=== PATIENT | female | born 2000 | race Two or more races ===

== ENCOUNTER 2020-11-10 12:08 | Emergency (ER) | payer OTHER ==
[~2020-11-10] VITALS: Ht 160 cm; Wt 54.0 kg
[2020-11-10 13:37] LABS: BASOPHILS % 0.5 % (0.0-2.0); EOSINOPHILS % 0.5 % (0.0-5.0); HEMATOCRIT. 41.5 % (36.0-48.0); HEMOGLOBIN. 13.7 g/dL (12.0-16.0); LYMPHOCYTES % 24.8 % (20.0-50.0); MEAN CORPUSCULAR HEMOGLOBIN 29.8 pg (28.0-32.0); MEAN CORPUSCULAR VOLUME 90.1 fL (81.0-99.0); MEAN PLATELET VOLUME 8.2 fl (7.4-10.4); MONOCYTES % 7.2 % (2.0-8.0); PLATELET 257 x1000/uL (130-400); RED CELL DISTRIBUTION WIDTH 15.2 % (11.6-14.6)
[2020-11-10 13:43] LABS: CHLORIDE 111 mEq/L (98-107)
[2020-11-10 14:19] LABS: B-HCG QUANTITATIVE 2126 mIU/mL (<3)
[2020-11-10] MEDS ORDERED: ACET-2708 MT (14:28)
[2020-11-10 16:10] VITALS: BP 100/84
[2020-11-10] MEDS ORDERED: ACETAMINOPHEN 325MG TABLET PO ONE (16:15)
== END 2020-11-10 16:08 | disposition home or self-care (01) ==
LOC: ER 12:08
DX: O02.1 Missed abortion (principal)
CPT/HCPCS: 36415; 76801; 80053; 84702; 85025; 86850; 86900; 99284